=== PATIENT | male | born 1975 | race African-American/Black ===

== ENCOUNTER 2023-08-02 23:14 | Inpatient (IN) | payer MEDICAID, OTHER ==
[~2023-08-02] VITALS: Ht 172.7 cm; Wt 93.7 kg
[2023-08-03 01:45] LABS: BASOPHILS % 0.4 % (0.0-2.0); EOSINOPHILS % 1.6 % (0.0-5.0); HEMATOCRIT. 41.2 % (42.0-52.0); HEMOGLOBIN. 13.8 g/dL (14.0-18.0); LYMPHOCYTES % 44.8 % (20.0-50.0); MEAN CORPUSCULAR HEMOGLOBIN 27.6 pg (28.0-32.0); MEAN CORPUSCULAR HGB CONC 33.5 g/dL (31.0-37.0); MEAN CORPUSCULAR VOLUME 82.5 fL (80.0-94.0); MEAN PLATELET VOLUME 7.6 fl (7.4-10.4); MONOCYTES % 10.6 % (2.0-8.0); NEUTROPHILS % 42.6 % (40.0-76.0); PLATELET 300 x1000/uL (130-400); RED BLOOD CELL COUNT 4.99 mill/uL (4.7-6.1); RED CELL DISTRIBUTION WIDTH 13.9 % (11.6-14.6); WHITE BLOOD COUNT 8.8 x1000/uL (4.5-11.0)
[2023-08-03] MEDS: CHLORDIAZEPOXIDE 25MG CAPSULE PO ONE (01:45)
[2023-08-03 01:58] LABS: ALANINE AMINOTRANSFERASE 98 IU/L (10-49); ALBUMIN 4.8 g/dL (3.2-4.8); ASPARTATE AMINOTRANSFERASE 158 IU/L (<34); BILIRUBIN TOTAL 1.5 mg/dL (0.1-1.0); CALCIUM 9.2 mg/dL (8.7-10.4); CARBON DIOXIDE 28 mEq/L (21-32); CHLORIDE 103 mEq/L (98-107); GLUCOSE 97 mg/dL (70-105); POTASSIUM 3.8 mEq/L (3.5-5.1); PROTEIN TOTAL 8.4 g/dL (6.0-8.3); SODIUM 137 mEq/L (136-145); UREA NITROGEN BLOOD 11 mg/dL (9-23)
[2023-08-03 02:15] LABS: CREATINE KINASE 4016 IU/L (46-171)
[2023-08-03] MEDS: CHLORDIAZEPOXIDE 25MG CAPSULE PO NR (03:17)
[2023-08-03] MEDS: SODIUM CHLORIDE 0.9% 1,000 ML IV ONE (03:20)
[2023-08-03] MEDS ORDERED: SODIUM CHLORIDE 0.9% 1,000 ML IV ONE (03:30)
[2023-08-03 04:03] LABS: CREATINE KINASE 3959 IU/L (46-171)
[2023-08-03 04:17] LABS: ETHANOL BLOOD < 10 mg/dL (<10)
[2023-08-03] MEDS ORDERED: ACETAMINOPHEN 325MG TABLET PO PRN (04:30)
[2023-08-03] MEDS ORDERED: MAGNESIUM/ALUMINUM HYDROXIDE/SIMETHICONE 30ML UDC PO PRN (04:30)
[2023-08-03] MEDS ORDERED: ONDANSETRON HCL 4MG/2ML INJ IV PRN (04:30)
[2023-08-03] MEDS ORDERED: SODIUM CHLORIDE 0.9% 1,000 ML IV SCH (04:30)
[2023-08-03] MEDS ORDERED: DOCUSATE SODIUM 100MG CAPSULE PO PRN (04:30)
[2023-08-03] MEDS ORDERED: GUAIFENESIN 200MG/10ML SUGAR FREE UDC PO PRN (04:30)
[2023-08-03] MEDS ORDERED: IPRATROPIUM/ALBUTEROL 0.5-3(2.5)MG/3ML NEB HHN PRN (04:30)
[2023-08-03] MEDS: FOLIC ACID 1 MG, THIAMINE HCL 100 MG, MVI, ADULT NO.1 10 ML in DEXTROSE 5% WATER 1,000 ML IV ONE (05:59)
[2023-08-03] MEDS: CHLORDIAZEPOXIDE 25MG CAPSULE PO SCH (07:07)
[2023-08-03] MEDS: ENOXAPARIN 40MG/0.4ML SYR SUBCUT SCH (09:08)
[2023-08-03] MEDS: PANTOPRAZOLE SODIUM 40 MG/VIAL IV SCH (09:08)
[2023-08-03] MEDS: ACETAMINOPHEN 325MG TABLET PO PRN (09:09)
[2023-08-03 10:52] LABS: BASOPHILS % 0.8 % (0.0-2.0); EOSINOPHILS % 2.5 % (0.0-5.0); HEMATOCRIT. 40.9 % (42.0-52.0); HEMOGLOBIN. 13.6 g/dL (14.0-18.0); LYMPHOCYTES % 45.3 % (20.0-50.0); MEAN CORPUSCULAR HEMOGLOBIN 27.1 pg (28.0-32.0); MEAN CORPUSCULAR HGB CONC 33.3 g/dL (31.0-37.0); MEAN CORPUSCULAR VOLUME 81.3 fL (80.0-94.0); MEAN PLATELET VOLUME 7.7 fl (7.4-10.4); MONOCYTES % 9.4 % (2.0-8.0); PLATELET 270 x1000/uL (130-400); RED BLOOD CELL COUNT 5.03 mill/uL (4.7-6.1); RED CELL DISTRIBUTION WIDTH 14.1 % (11.6-14.6); WHITE BLOOD COUNT 7.1 x1000/uL (4.5-11.0)
[2023-08-03 11:04] LABS: CALCIUM 8.6 mg/dL (8.7-10.4); CARBON DIOXIDE 29 mEq/L (21-32); CHLORIDE 103 mEq/L (98-107); CREATININE 0.9 mg/dL (0.6-1.3); GLUCOSE 140 mg/dL (70-105); IRON 186 ug/dL (65-175); POTASSIUM 3.4 mEq/L (3.5-5.1); SODIUM 138 mEq/L (136-145); TOTAL IRON BINDING CAPACITY 256 ug/dl (250-425); UREA NITROGEN BLOOD 9 mg/dL (9-23)
[2023-08-03 11:10] LABS: TROPONIN I HIGH SENSITIVITY 54 ng/L (3.0-53)
[2023-08-03] MEDS ORDERED: HYDRALAZINE 20MG/ML VIAL IV PRN (11:15)
[2023-08-03] MEDS ORDERED: LORAZEPAM 2MG/ML INJ IV PRN (11:15)
[2023-08-03 11:26] VITALS: BP 139/76; PULSE 65; RESP 19; TEMP 97.5
[2023-08-03 11:43] LABS: FERRITIN 463 ng/mL (22-322); FOLIC ACID (FOLATE) SERUM > 20.00 ng/mL (>5.38); VITAMIN B12 SERUM 1803 pg/mL (211-911)
[2023-08-03 12:00] VITALS: BP 141/73; PULSE 84; RESP 20; TEMP 98.8
[2023-08-03] MEDS: ASPIRIN 81MG TABLET PO SCH (12:19)
[2023-08-03] MEDS: POTASSIUM CHLORIDE 10MEQ TABLET SR PO NR (12:19)
[2023-08-03] MEDS: THIAMINE HCL 100MG TABLET PO SCH (12:20)
[2023-08-03] MEDS: LACTATED RINGERS 1,000 ML IV SCH (13:00)
[2023-08-03] MEDS: MULTIVITAMINS,THER W-MINERALS TABLET PO SCH (13:01)
[2023-08-03 16:00] VITALS: BP 125/47; PULSE 166; PULSE 66; RESP 18; TEMP 96.7
[2023-08-03 20:00] VITALS: BP 139/74; PULSE 77; RESP 18; TEMP 98.5
[2023-08-03] MEDS ORDERED: HYDRALAZINE 10 MG in SODIUM CHLORIDE 0.9% 49.5 ML IV PRN (20:15)
[2023-08-03] MEDS: AMLODIPINE 5MG TABLET PO SCH (21:29)
[2023-08-04] VITALS: BP 143/80; PULSE 84; RESP 18; TEMP 98.2
[2023-08-04 04:00] VITALS: BP 134/77; PULSE 77; RESP 20; TEMP 98.5
[2023-08-04 07:26] LABS: BASOPHILS % 0.6 % (0.0-2.0); EOSINOPHILS % 2.5 % (0.0-5.0); HEMATOCRIT. 40.8 % (42.0-52.0); HEMOGLOBIN. 13.4 g/dL (14.0-18.0); LYMPHOCYTES % 44.9 % (20.0-50.0); MEAN CORPUSCULAR HEMOGLOBIN 27.1 pg (28.0-32.0); MEAN CORPUSCULAR HGB CONC 32.8 g/dL (31.0-37.0); MEAN CORPUSCULAR VOLUME 82.6 fL (80.0-94.0); MEAN PLATELET VOLUME 7.9 fl (7.4-10.4); MONOCYTES % 9.9 % (2.0-8.0); NEUTROPHILS % 42.1 % (40.0-76.0); PLATELET 252 x1000/uL (130-400); RED BLOOD CELL COUNT 4.94 mill/uL (4.7-6.1); RED CELL DISTRIBUTION WIDTH 13.8 % (11.6-14.6); WHITE BLOOD COUNT 7.4 x1000/uL (4.5-11.0)
[2023-08-04 07:42] LABS: CLARITY URINE CLOUDY (CLEAR); COLOR URINE YELLOW (YELLOW); GLUCOSE URINE NEGATIVE (NEGATIVE); KETONES URINE NEGATIVE (NEGATIVE); LEUKOCYTE ESTERASE URINE NEGATIVE (NEGATIVE); NITRITE URINE NEGATIVE (NEGATIVE); OCCULT BLOOD URINE NEGATIVE (NEGATIVE); PH URINE 7.5 (4.5-8.0); PROTEIN URINE NEGATIVE (NEGATIVE); SPECIFIC GRAVITY URINE 1.013 (1.005-1.030)
[2023-08-04 07:44] LABS: ALANINE AMINOTRANSFERASE 81 IU/L (10-49); ALBUMIN 4.1 g/dL (3.2-4.8); ASPARTATE AMINOTRANSFERASE 91 IU/L (<34); BILIRUBIN TOTAL 0.8 mg/dL (0.1-1.0); CARBON DIOXIDE 25 mEq/L (21-32); CHLORIDE 107 mEq/L (98-107); CHOLESTEROL 189 mg/dL (<200); GLUCOSE 85 mg/dL (70-105); HDL CHOLESTEROL 35 mg/dL (>55); LDL CHOLESTEROL 117 mg/dL (5-100); PHOSPHORUS 3.7 mg/dL (2.5-4.9); POTASSIUM 3.9 mEq/L (3.5-5.1); SODIUM 140 mEq/L (136-145); THYROID STIMULATING HORMONE 0.65 uIU/mL (0.55-4.78); TRIGLYCERIDE 236 mg/dL (0-150); UREA NITROGEN BLOOD 8 mg/dL (9-23)
[2023-08-04 08:00] VITALS: BP 133/66; PULSE 66; RESP 20; TEMP 98
[2023-08-04 08:22] LABS: *AMPHETAMINES SCREEN URINE NEGATIVE (NEGATIVE); *BARBITURATES SCREEN URINE NEGATIVE (NEGATIVE); *BENZODIAZEPINES SCREEN URINE PRESUMPTIVE POSITIVE (NEGATIVE); *COCAINE SCREEN URINE NEGATIVE (NEGATIVE); CANNABINOID URINE SCREEN NEGATIVE (NEGATIVE); ECSTASY MDMA SCREEN URINE NEGATIVE (NEGATIVE); METHADONE URINE SCREEN Neg (NEGATIVE); OPIATES URINE SCREEN NEGATIVE (NEGATIVE); PHENCYCLIDINE URINE SCREEN NEGATIVE (NEGATIVE)
[2023-08-04 08:48] LABS: SQUAMOUS EPITHELIAL CELL URINE NONE SEEN /lpf (RARE/1+)
[2023-08-04 08:49] LABS: AMORPHOUS SEDIMENT URINE 3+ /lpf; BACTERIA URINE TRACE; RBC URINE NONE SEEN /hpf (0-2); WBC URINE NONE SEEN /hpf (0-2)
[2023-08-04] MEDS: ENOXAPARIN 30MG/0.3ML SYR SUBCUT SCH (09:06)
[2023-08-04 12:00] VITALS: BP 145/74; PULSE 67; RESP 20; TEMP 98.1
[2023-08-04 12:44] LABS: CREATINE KINASE 1647 IU/L (46-171)
[2023-08-04] MEDS: CHLORDIAZEPOXIDE 10MG CAPSULE PO SCH (14:00)
[2023-08-04 16:00] VITALS: BP 125/7; PULSE 73; RESP 20; TEMP 97.2
[2023-08-04 20:00] VITALS: BP 153/79; PULSE 68; RESP 16; TEMP 97
[2023-08-04] MEDS: ATORVASTATIN CALCIUM 40MG TABLET PO SCH (21:01)
[2023-08-05] VITALS: BP 169/89; PULSE 75; RESP 16; TEMP 97.6
[2023-08-05 04:00] VITALS: BP 160/102; PULSE 65; RESP 18; TEMP 96.9
[2023-08-05] MEDS: CLONIDINE 0.1MG TABLET PO PRN (06:27)
[2023-08-05 08:00] VITALS: BP 132/83; PULSE 66; RESP 20; TEMP 97.5
[2023-08-05 08:35] VITALS: BP 120/87; PULSE 78; TEMP 98.5; O2SAT 99
== END 2023-08-05 11:00 | disposition left against medical advice (07) | DRG 351 ==
LOC: ER 23:14 → 6WST 08-03 08:03
PROVIDERS: ADMIT Internal Medicine; ATTEND Internal Medicine
DX: M62.82 Rhabdomyolysis (principal); G92.8 Other toxic encephalopathy; I21.A1 Myocardial infarction type 2; E86.0 Dehydration; I16.0 Hypertensive urgency; F10.939 Alcohol use, unspecified with withdrawal, unspecified; I10 Essential (primary) hypertension; Z53.29 Procedure and treatment not carried out because of patient's decision for other reasons; D64.9 Anemia, unspecified; E78.5 Hyperlipidemia, unspecified; R74.01 Elevation of levels of liver transaminase levels; R73.03 Prediabetes; F17.210 Nicotine dependence, cigarettes, uncomplicated; Z79.899 Other long term (current) drug therapy; Z82.49 Family history of ischemic heart disease and other diseases of the circulatory system; Z82.3 Family history of stroke
CPT/HCPCS: 36415; 71045; 80048; 80053; 80061; 80305; 80320; 81003; 82550; 82607; 82728; 82746; 83036; 83540; 83550; 83735; 84100; 84439; 84443; 84484; 85025; 93005; 99285; C9113; J1650; J3411; J3490; J7030; J7070; J7120; G0480

== ENCOUNTER 2023-09-18 21:52 | Emergency (ER) | payer MEDICAID, OTHER ==
[~2023-09-18] VITALS: Ht 177.8 cm; Wt 86.0 kg
[2023-09-18 22:14] VITALS: BP 151/94; PULSE 85; RESP 16; TEMP 98.5; O2SAT 98
[2023-09-19] MEDS ORDERED: CLONIDINE 0.2MG TABLET PO ONE (00:45)
[2023-09-19] MEDS: CLONIDINE 0.1MG TABLET PO NR (01:00)
[2023-09-19] MEDS: FOLIC ACID 1 MG, THIAMINE HCL 100 MG, MVI, ADULT NO.1 10 ML in DEXTROSE 5% WATER 1,000 ML IV ONE (01:51)
[2023-09-19] MEDS: SODIUM CHLORIDE 0.9% 500 ML IV ONE (01:57)
== END 2023-09-19 05:59 | disposition home or self-care (01) ==
LOC: ER 21:52
DX: F10.129 Alcohol abuse with intoxication, unspecified (principal); F10.10 Alcohol abuse, uncomplicated; Y90.9 Presence of alcohol in blood, level not specified
CPT/HCPCS: 99284; 96365; J3490 ×2; J3411; J7070; J7040

== ENCOUNTER 2023-10-19 18:04 | Emergency (ER) | payer OTHER, MEDICAID ==
[~2023-10-19] VITALS: Ht 177.8 cm; Wt 85.0 kg
[2023-10-19 18:08] VITALS: PULSE 102
[2023-10-19 18:10] VITALS: BP 156/82; RESP 18; O2SAT 96
[2023-10-19] MEDS ORDERED: ONDANSETRON 4MG ODT PO NR (18:45)
[2023-10-19 18:58] LABS: BASOPHILS % 0.7 % (0.0-2.0); EOSINOPHILS % 0.6 % (0.0-5.0); HEMATOCRIT. 43.3 % (42.0-52.0); HEMOGLOBIN. 14.5 g/dL (14.0-18.0); LYMPHOCYTES % 34.4 % (20.0-50.0); MEAN CORPUSCULAR HEMOGLOBIN 27.2 pg (28.0-32.0); MEAN CORPUSCULAR HGB CONC 33.6 g/dL (31.0-37.0); MEAN CORPUSCULAR VOLUME 80.9 fL (80.0-94.0); MEAN PLATELET VOLUME 7.2 fl (7.4-10.4); MONOCYTES % 14.5 % (2.0-8.0); NEUTROPHILS % 49.8 % (40.0-76.0); PLATELET 323 x1000/uL (130-400); RED BLOOD CELL COUNT 5.35 mill/uL (4.7-6.1); RED CELL DISTRIBUTION WIDTH 14.1 % (11.6-14.6); WHITE BLOOD COUNT 7.6 x1000/uL (4.5-11.0)
[2023-10-19 19:13] LABS: CHLORIDE 103 mEq/L (98-107); POTASSIUM 3.7 mEq/L (3.5-5.1); SODIUM 138 mEq/L (136-145)
[2023-10-19 19:14] LABS: CARBON DIOXIDE 28 mEq/L (21-32)
[2023-10-19 19:15] LABS: CALCIUM 9.7 mg/dL (8.7-10.4)
[2023-10-19 19:19] LABS: GLUCOSE 110 mg/dL (70-105); UREA NITROGEN BLOOD 12 mg/dL (9-23)
[2023-10-19 19:20] LABS: TROPONIN I HIGH SENSITIVITY 12 ng/L (3.0-53)
[2023-10-19 19:26] LABS: ETHANOL BLOOD < 10 mg/dL (<10)
[2023-10-19] MEDS: ONDANSETRON 4MG ODT PO ONE (20:20)
[2023-10-19] MEDS: MAGNESIUM/ALUMINUM HYDROXIDE/SIMETHICONE 30ML UDC PO ONE (20:20)
[2023-10-19] MEDS: FAMOTIDINE 20MG TABLET PO ONE (20:20)
[2023-10-19 20:32] VITALS: TEMP 98.2
[2023-10-19] MEDS: ACETAMINOPHEN 500MG TABLET PO ONE (20:32)
[2023-10-19] MEDS ORDERED: ACET-2708 MT (20:50)
== END 2023-10-19 21:03 | disposition home or self-care (01) ==
LOC: ER 18:04
DX: F10.10 Alcohol abuse, uncomplicated (principal)
CPT/HCPCS: 80048; 80320; 85025; 84484; 36415; 71045; 93005; 99285; Q0162; G0480

== ENCOUNTER 2024-09-10 18:38 | Emergency (ER) | payer OTHER, MEDICAID ==
[~2024-09-10] VITALS: Ht 177.8 cm; Wt 86.1 kg
[~2024-09-10 18:38] MED LIST: ACET-2708 MT
[2024-09-10 18:40] VITALS: O2SAT 97
[2024-09-10] MEDS ORDERED: DICYCLOMINE 10 MG/5 ML ORAL SYR PO STA (19:14)
[2024-09-10 19:15] LABS: BASOPHILS % 0.9 % (0.0-2.0); EOSINOPHILS % 0.6 % (0.0-5.0); HEMATOCRIT. 44.6 % (42.0-52.0); HEMOGLOBIN. 14.3 g/dL (14.0-18.0); LYMPHOCYTES % 35.7 % (20.0-50.0); MEAN CORPUSCULAR HEMOGLOBIN 26.2 pg (28.0-32.0); MEAN CORPUSCULAR HGB CONC 32.2 g/dL (31.0-37.0); MEAN CORPUSCULAR VOLUME 81.6 fL (80.0-94.0); MEAN PLATELET VOLUME 7.3 fl (7.4-10.4); MONOCYTES % 12.7 % (2.0-8.0); NEUTROPHILS % 50.1 % (40.0-76.0); PLATELET 296 x1000/uL (130-400); RED BLOOD CELL COUNT 5.46 mill/uL (4.7-6.1); RED CELL DISTRIBUTION WIDTH 13.9 % (11.6-14.6); WHITE BLOOD COUNT 7.4 x1000/uL (4.5-11.0)
[2024-09-10 19:20] VITALS: TEMP 36.7
[2024-09-10 19:20] LABS: CARBON DIOXIDE 30 mEq/L (21-32); CHLORIDE 100 mEq/L (98-107); POTASSIUM 3.7 mEq/L (3.5-5.1); SODIUM 138 mEq/L (136-145)
[2024-09-10 19:21] LABS: CALCIUM 9.6 mg/dL (8.7-10.4)
[2024-09-10 19:25] LABS: CREATININE 1.2 mg/dL (0.6-1.3)
[2024-09-10 19:26] LABS: GLUCOSE 126 mg/dL (70-105); TROPONIN I HIGH SENSITIVITY 22 ng/L (3.0-53); UREA NITROGEN BLOOD 10 mg/dL (9-23)
[2024-09-10 19:27] LABS: ALANINE AMINOTRANSFERASE 60 IU/L (10-49); ALBUMIN 4.7 g/dL (3.2-4.8); ASPARTATE AMINOTRANSFERASE 99 IU/L (<34)
[2024-09-10 19:28] LABS: BILIRUBIN DIRECT 0.1 mg/dL (<=3.0); BILIRUBIN TOTAL 0.7 mg/dL (0.1-1.0); PROTEIN TOTAL 7.9 g/dL (6.0-8.3)
[2024-09-10] MEDS: DICYCLOMINE HCL 10MG CAPSULE PO SCH (19:41)
[2024-09-10] MEDS: ONDANSETRON 4MG ODT PO STA (19:42)
[2024-09-10] MEDS: MAGNESIUM/ALUMINUM HYDROXIDE/SIMETHICONE 30ML UDC PO STA (19:42)
[2024-09-10] MEDS: CLONIDINE 0.1MG TABLET PO ONE (19:43)
[2024-09-10] MEDS ORDERED: AMLO10TA80 MT (20:59)
[2024-09-10 21:32] VITALS: BP 166/90; PULSE 84; RESP 20; O2SAT 98
== END 2024-09-10 22:00 | disposition home or self-care (01) ==
LOC: ER 18:38
DX: I10 Essential (primary) hypertension (principal); K29.70 Gastritis, unspecified, without bleeding; E78.00 Pure hypercholesterolemia, unspecified; Z79.899 Other long term (current) drug therapy
CPT/HCPCS: 80076; 80048; 83690; 85025; 84484; 36415; 71045; 93005; 99285; Q0162; Z7610